=== PATIENT | male | born 1935 | race African-American/Black ===

== ENCOUNTER 2016-05-02 13:23 | Outpatient (CLI) | payer OTHER ==
[2016-01-19 21:12] VITALS: BP 147/58
--- NOTE | 2016-05-02 14:35 | Diagnostic Imaging Report ---
[facility] [address] [facility] [address] [place], [place]. [address] Report Submission Date: May 02, 2016 2:12:32 PM COSTUMING SUPERVISOR Patient Study Name: LUIS FAIR Date: May 02, 2016 1:35:04 PM COSTUMING SUPERVISOR Modality Type: CT\SR Gender: M Description: CT BRAIN W/O CONTRAST : 39 Institution: [facility] Physician KE HELIO - OP Computed tomography of the head without contrast HISTORY: Loss of consciousness and altered mental status FINDINGS: Transverse brain sections are obtained without contrast revealing mild cerebellar and marked cerebral atrophy. Extensive chronic small vessel ischemic gliosis is observed throughout cerebral white matter. Old lacunar infarcts are observed in each cerebellar hemisphere, right rylee, and bilateral basal ganglia. Gates-white differentiation is intact. There is no intracranial hemorrhage, mass effect, or fluid collection. The skull is intact. IMPRESSION: Mild cerebellar and marked cerebral atrophy. 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 Extensive chronic small vessel ischemic gliosis in cerebral white matter. No acute intracranial abnormalities observed. Electronically signed on May 02, 2016 2:12:32 PM COSTUMING SUPERVISOR by: Marco Antonio SILVA
== END 2016-05-02 13:24 ==
LOC: RAD 13:23
PROVIDERS: ATTEND Family Medicine
DX: R41.82 Altered mental status, unspecified (principal)
CPT/HCPCS: 70450

== ENCOUNTER 2016-08-16 17:51 | Emergency (ER) | payer OTHER ==
[2016-08-16] MEDS ORDERED: 0.9 % SODIUM CHLORIDE 1,000 ML IV ONE (17:58)
[2016-08-16 18:08] LABS: BASOPHILS % 0.3 (0.0-1.5); EOSINOPHILS % 1.5 % (0.0-6.8); MEAN CORPUSCULAR HEMOGLOBIN 29.1 pg (28.0-34.0); MEAN CORPUSCULAR VOLUME 93.2 fl (80.0-100.0); NEUTROPHILS # 8.7 # k/uL (1.4-7.7)
--- NOTE | 2016-08-16 18:15 | ED Physician Documentation ---
General Adult - HISTORIAN Historian: paramedics, other ([facility]) - HPI Stated Complaint: unresponsiveness Chief Complaint: General Adult Additional Information: Decreasing responsiveness since lunch. When EMS arrived, pt's - ROS CONST: fever (99.6 in ER) - PAST HX Past History: hypertension, other (CVA; BPH, IDDM) - SOCIAL HX Smoking History: non-smoker - FAMILY HX Family History: No (no signif ) - VITAL SIGNS Vital Signs: Vital Signs Temp Pulse Resp BP Pulse Ox 147/58 01/19/16 21:10 - REVIEWED ASSESSMENTS Nursing Assessment Reviewed: Yes Vitals Reviewed: Yes <ERICKSON CUADRA - Last Filed: 08/16/16 19:19> - VITAL SIGNS Vital Signs: Vital Signs Temp Pulse Resp BP Pulse Ox 98 F 80 14 160/56 98 08/16/16 17:51 08/16/16 17:51 08/16/16 17:51 08/16/16 17:51 08/16/16 17:51 <Soham Sauceda - Last Filed: 08/16/16 21:08> - PAST HX Allergies/Adverse Reactions: Allergies Allergy/AdvReac Type Severity Reaction Status Date / Time rivastigmine [From Exelon] Allergy Verified 11/20/14 14:24 rivastigmine tartrate Allergy Verified 11/20/14 14:24 [From Exelon] Home Medications: Ambulatory Orders Medication Instructions Recorded Allopurinol [Zyloprim] 300 mg PO DAILY 06/22/14 Aspirin [Eden] 81 mg PO DAILY 06/22/14 Lisinopril 5Mg [Prinivil] 10 mg PO DAILY 06/22/14 Lovastatin 20 mg PO HS 06/22/14 Potassium Chloride [Klor-Con M20] 20 meq PO DAILY 06/22/14 amLODIPine BESYLATE [Norvasc] 10 mg PO 0900 06/22/14 Amlodipine Besylate [Amlodipine 10 mg PO DAILY 11/20/14 Besylate] Donepezil HCl [Donepezil HCl] 10 mg PO DAILY 11/20/14 Finasteride [Finasteride] 5 mg PO DAILY 11/20/14 Furosemide [Furosemide] 20 mg PO DAILY 11/20/14 Gabapentin [Gabapentin] 400 mg PO TID 11/20/14 Insulin Aspart [Novolog] 2 units SUBCUT DAILY 11/20/14 Insulin Glargine,Hum.rec.anlog 40 units SUBCUT DAILY 11/20/14 [Lantus] Terazosin HCl [Hytrin] 2 mg PO DAILY 11/20/14 Mag Hydrox/Al Hydrox/Simeth 15 ml PO Q2H PRN #120 udc 01/19/16 [Mylanta] Omeprazole [Prilosec] 20 mg PO DAILY #30 capsule. 01/19/16 Progress - Progress Progress: CT Brain without Contrast History: HX CVA, DECREASED RESPONSIVENESS Technique: Transaxial CT was performed without contrast from the skull base to the vertex. Findings: Comparison is made to examinations dated May 02, 2016. Scattered bilateral white matter hypodensity is present, consistent with gliosis. Diffuse cerebral atrophy is present. The lateral ventricles are dilated but unchanged. There is evidence of old bilateral basal ganglia, pontine and right cerebellar lacunar infarcts. No hemorrhage or edema- producing mass. The fourth ventricle is midline. The paranasal sinuses are clear. No skull fracture. The mastoid air cells are well developed and well aerated. Impression: 1. Diffuse cerebral atrophy, white matter gliosis, and evidence old bilateral basal ganglia, pontine and right cerebellar infarcts. Findings on change since . 2. No acute cerebral pathology. Electronically signed on August 16, 2016 6:21:46 PM CDT by: Tico Ng 1900, care to Dr. Sauceda <ERICKSON CUADRA - Last Filed: 08/16/16 19:19> - Progress Progress: Sensorium improved after IVF. Levaquin 500 mg po in ER for hematuria. Rx Levaquin 250 mg. Take one daily for 7 days. <Soham Sauceda - Last Filed: 08/16/16 21:08> ED Results Lab/Radiology - Lab Results Lab Results: Lab Results 08/16/16 18:00 WBC 12.00 K/ul K/ul (4.00-12.00) RBC 3.43 M/ul L M/ul (3.90-5.20) Hgb 10.0 g/dL L g/dL (12.0-18.0) Hct 32.0 % L % (37.0-53.0) MCV 93.2 fl fl (80.0-100.0) MCH 29.1 pg pg (28.0-34.0) MCHC 31.2 g/dL g/dL (30.0-36.0) RDW 14.5 % H % (11.3-14.3) Plt Count 251 K/mm3 K/mm3 (130-400) Neut % (Auto) 72.6 % % (39.0-79.0) Lymph % (Auto) 18.7 % % (16.0-50.0) [place] % (Auto) 5.0 % % (0.0-11.0) Eos % (Auto) 1.5 % % (0.0-6.8) Baso % (Auto) 0.3 (0.0-1.5) Neut # 8.7 # k/uL H # k/uL (1.4-7.7) Lymph # 2.2 # k/uL # k/uL (0.6-4.0) [place] # 0.6 # k/uL # k/uL (0.0-0.9) Eos # 0.2 # k/uL # k/uL (0.0-0.6) Baso # 0.0 # k/uL # k/uL (0.0-0.5) Reactive Lymphs % 1.9 % % (0.0-5.0) Reactive Lymphs # 0.2 # k/uL # k/uL (0.0-0.8) - Orders Orders: ED Orders Category Date Time Status Place Saline Lock/IV Now Care 08/16/16 17:[address] BRAIN W/O CONTRAST Stat Exams 08/16/16 Ordered CBC/PLATELET/DIFF Routine Lab 08/16/16 18:00 Completed CMP Routine Lab 08/16/16 18:00 Received DRUG SCREEN URINE MEDICAL ONLY Routine Lab 08/16/16 Ordered PT-INR Routine Lab 08/16/16 18:00 Received TROPONIN I (cTnI) Stat Lab 08/16/16 18:00 Received URINALYSIS Routine Lab 08/16/16 Ordered 0.9 % Sodium Chloride [Normal Saline] 1,000 ml Med 08/16/16 17:58 Active IV Q2H <ERICKSON CUADRA - Last Filed: 08/16/16 19:19> - Lab Results Lab Results: Lab Results 08/16/16 08/16/16 08/16/16 18:35 18:35 18:00 WBC RBC Hgb Hct MCV MCH MCHC RDW Plt Count Neut % (Auto) Lymph % (Auto) [place] % (Auto) Eos % (Auto) Baso % (Auto) Neut # Lymph # [place] # Eos # Baso # Reactive Lymphs % Reactive Lymphs # PT INR Sodium Potassium Chloride Carbon Dioxide BUN Creatinine Estimated Creat Clear Est GFR ( Amer) Est GFR (Non-Af Amer) Glucose Calcium Total Bilirubin AST ALT Alkaline Phosphatase Troponin I < 0.03 ng/mL L ng/mL (0.03-0.06) Total Protein Albumin Urine Color Yellow (YELLOW) Urine Appearance Clear (CLEAR) Urine pH 5.5 (5.0 - 8.0) Ur Specific [place] 1.020 (1.010-1.030) Urine Protein 3+ mg/dL H mg/dL (NEGATIVE) Urine Ketones Negative mg/dL mg/dL (NEGATIVE) Urine Occult Blood 1+ H (NEGATIVE) Urine Nitrite Negative (NEGATIVE) Urine Bilirubin Negative (NEGATIVE) Urine Urobilinogen 0.2 Eu Eu (0.2-1.0) Ur Leukocyte Esterase Negative (NEGATIVE) Urine RBC 2-5 H (0-2 HPF) Urine WBC 0-2 (0-5 HPF) Amorphous Sediment Few H (NEGATIVE) Urine Bacteria Moderate H (NEGATIVE) Urine Glucose Negative mg/dL mg/dL (NEGATIVE) Opiates Screen Negative (2000 ng/mL) Oxycodone Screen Negative ng/mL ng/mL (<100) Methadone Screen Negative ng/mL ng/mL (<300) POC Urine Barbiturates Negative ng/mL ng/mL (<300) Amphetamines Screen Negative ng/mL ng/mL (<1000) POC Ur Methamphetamine Negative ng/mL ng/mL (<1000) MDMA Negative ng/mL ng/mL (<500) Benzodiazepines Screen Negative ng/mL ng/mL (<300) Cocaine Screen Negative ng/mL ng/mL (<150) Marijuana (THC) Screen Negative ng/mL ng/mL (<50) 08/16/16 08/16/16 08/16/16 18:00 18:00 18:00 WBC 12.00 K/ul K/ul (4.00-12.00) RBC 3.43 M/ul L M/ul (3.90-5.20) Hgb 10.0 g/dL L g/dL (12.0-18.0) Hct 32.0 % L % (37.0-53.0) MCV 93.2 fl fl (80.0-100.0) MCH 29.1 pg pg (28.0-34.0) MCHC 31.2 g/dL g/dL (30.0-36.0) RDW 14.5 % H % (11.3-14.3) Plt Count 251 K/mm3 K/mm3 (130-400) Neut % (Auto) 72.6 % % (39.0-79.0) Lymph % (Auto) 18.7 % % (16.0-50.0) [place] % (Auto) 5.0 % % (0.0-11.0) Eos % (Auto) 1.5 % % (0.0-6.8) Baso % (Auto) 0.3 (0.0-1.5) Neut # 8.7 # k/uL H # k/uL (1.4-7.7) Lymph # 2.2 # k/uL # k/uL (0.6-4.0) [place] # 0.6 # k/uL # k/uL (0.0-0.9) Eos # 0.2 # k/uL # k/uL (0.0-0.6) Baso # 0.0 # k/uL # k/uL (0.0-0.5) Reactive Lymphs % 1.9 % % (0.0-5.0) Reactive Lymphs # 0.2 # k/uL # k/uL (0.0-0.8) PT 10.4 Seconds Seconds (9.7-11.5) INR 1.0 (0.9-1.1) Sodium 135 mmol/L L mmol/L (136-145) Potassium 4.1 mmol/L mmol/L (3.5-5.0) Chloride 99 mmol/L mmol/L (98-110) Carbon Dioxide 28 mmol/L mmol/L (20-32) BUN 25 mg/dL mg/dL (10-26) Creatinine 1.5 mg/dL mg/dL (0.4-1.5) Estimated Creat Clear 38 Est GFR ( Amer) 58 L (60 - ) Est GFR (Non-Af Amer) 48 L (60 - ) Glucose 167 mg/dL H mg/dL (70-99) Calcium 9.4 mg/dL mg/dL (8.5-10.5) Total Bilirubin 0.4 mg/dL mg/dL (0.2-1.2) AST 24 U/L U/L (0-41) ALT 17 U/L U/L (0-45) Alkaline Phosphatase 58 U/L U/L (46-116) Troponin I Total Protein 7.1 g/dL g/dL (6.0-8.5) Albumin 3.7 g/dL g/dL (3.0-5.5) Urine Color Urine Appearance Urine pH Ur Specific [place] Urine Protein Urine Ketones Urine Occult Blood Urine Nitrite Urine Bilirubin Urine Urobilinogen Ur Leukocyte Esterase Urine RBC Urine WBC Amorphous Sediment Urine Bacteria Urine Glucose Opiates Screen Oxycodone Screen Methadone Screen POC Urine Barbiturates Amphetamines Screen POC Ur Methamphetamine MDMA Benzodiazepines Screen Cocaine Screen Marijuana (THC) Screen - Orders Orders: ED Orders Category Date Time Status In & Out Catheter [Urinary catheterization] 1T Care 08/16/16 18:[address] Saline Lock/IV Now Care 08/16/16 17:[address] BRAIN W/O CONTRAST Stat Exams 08/16/16 Taken CBC/PLATELET/DIFF Routine Lab 08/16/16 18:00 Completed CMP Routine Lab 08/16/16 18:00 Completed DRUG SCREEN URINE MEDICAL ONLY Routine Lab 08/16/16 18:35 Completed PT-INR Routine Lab 08/16/16 18:00 Completed TROPONIN I (cTnI) Stat Lab 08/16/16 18:00 Completed URINALYSIS Routine Lab 08/16/16 18:35 Completed 0.9 % Sodium Chloride [Normal Saline] 1,000 ml Med 08/16/16 17:58 Discontinued IV Q2H Levofloxacin [Levaquin] Med 08/17/16 09:00 Ordered 500 mg PO DAILY <Soham Sauceda Last Filed: 08/16/16 21:08> General Adult Physical Exam - PHYSICAL EXAM GENERAL APPEARANCE: no distress EENT: eye inspection normal (except pupils 2mm or less marisol) NECK: normal inspection, supple RESPIRATORY: no resp distress, breath sounds normal CVS: reg rate & rhythm, heart sounds normal ABDOMEN: soft, normal bowel sounds RECTAL: deferred BACK: normal inspection SKIN: warm/dry, normal color EXTREMITIES: no evidence of injury, no edema NEURO: CN's nml as tested, motor nml, sensation nml, other <ERICKSON CUADRA - Last Filed: 08/16/16 19:19> Discharge <ERICKSON CUADRA - Last Filed: 08/16/16 19:19> Decision to Admit: NO Decision Time: 20:30 <Soham Sauceda - Last Filed: 08/16/16 21:08> Clincal Impression: Hematuria Mental status change Qualifiers: Altered mental status type: unspecified Qualified Code(s): R41.82 - Altered mental status, unspecified Referrals: Max Blanco MD [Primary Care Provider] - Home Medications: Ambulatory Orders Allopurinol [Zyloprim] 300 mg PO DAILY 06/22/14 Aspirin [Eden] 81 mg PO DAILY 06/22/14 Lisinopril 5Mg [Prinivil] 10 mg PO DAILY 06/22/14 Lovastatin 20 mg PO HS 06/22/14 Potassium Chloride [Klor-Con M20] 20 meq PO DAILY 06/22/14 amLODIPine BESYLATE [Norvasc] 10 mg PO 0900 06/22/14 Amlodipine Besylate [Amlodipine Besylate] 10 mg PO DAILY 11/20/14 Donepezil HCl [Donepezil HCl] 10 mg PO DAILY 11/20/14 Finasteride [Finasteride] 5 mg PO DAILY 11/20/14 Furosemide [Furosemide] 20 mg PO DAILY 11/20/14 Gabapentin [Gabapentin] 400 mg PO TID 11/20/14 Insulin Aspart [Novolog] 2 units SUBCUT DAILY 11/20/14 Insulin Glargine,Hum.rec.anlog [Lantus] 40 units SUBCUT DAILY 11/20/14 Terazosin HCl [Hytrin] 2 mg PO DAILY 11/20/14 Mag Hydrox/Al Hydrox/Simeth [Mylanta] 15 ml PO Q2H PRN #120 udc 01/19/16 Omeprazole [Prilosec] 20 mg PO DAILY #30 capsule. 01/19/16 Condition: Stable Disposition: 04 [facility]
[2016-08-16 18:45] LABS: APPEARANCE,URINE Clear (CLEAR); COLOR,URINE Yellow (YELLOW); OCCULT BLOOD,URINE 1+ (NEGATIVE); PH URINE 5.5 (5.0 - 8.0); UROBILINOGEN URINE 0.2 Eu (0.2-1.0)
[2016-08-16 18:48] LABS: AMPHETAMINE NEGATIVE ng/mL (<1000); BARBITURATES NEGATIVE ng/mL (<300); CANNABINOIDS NEGATIVE ng/mL (<50); COCAINE NEGATIVE ng/mL (<150); METHAMPHETAMINE NEGATIVE ng/mL (<1000); METHYLENEDIOXYMETHAMPHETAMINE NEGATIVE ng/mL (<500)
[2016-08-16 19:01] LABS: AMORPHOUS SEDIMENT,UR FEW (NEGATIVE)
[2016-08-16] MEDS ORDERED: LEVOFLOXACIN 500 MG TABLET PO ONE (20:41)
[2016-08-16 21:28] VITALS: BP 170/61
--- NOTE | 2016-08-16 22:47 | Diagnostic Imaging Report ---
ERICKSON CUADRA [facility] [address] [facility] [address] [place], [place]. [address] Report Submission Date: August 16, 2016 6:21:46 PM CDT Patient Study Name: LUIS FAIR Date: August 16, 2016 6:07:52 PM CDT Modality Type: CT\SR Gender: M Description: CT BRAIN W/O CONTRAST : 37 Institution: [facility] Physician: ERICKSON CUADRA CT Brain without Contrast History: HX CVA, DECREASED RESPONSIVENESS Technique: Transaxial CT was performed without contrast from the skull base to the vertex. Findings: Comparison is made to examinations dated May 02, 2016. Scattered bilateral white matter hypodensity is present, consistent with gliosis. Diffuse cerebral atrophy is present. The lateral ventricles are dilated but unchanged. There is evidence of old bilateral basal ganglia, pontine and right cerebellar lacunar infarcts. No hemorrhage or edema- producing mass. The fourth ventricle is midline. The paranasal sinuses are clear. No skull fracture. The mastoid air cells are well developed and well aerated. Impression: 1. Diffuse cerebral atrophy, white matter gliosis, and evidence old bilateral basal ganglia, pontine and right cerebellar infarcts. Findings on change since . 2. No acute cerebral pathology. Electronically signed on August 16, 2016 6:21:46 PM CDT by: Tico Ng [facility]
[2016-08-17] MEDS ORDERED: LEVOFLOXACIN 500 MG TABLET PO SCH (09:00)
== END 2016-08-16 21:00 ==
LOC: ED 17:51
DX: R41.82 Altered mental status, unspecified (principal); R31.9 Hematuria, unspecified
CPT/HCPCS: 70450; 80053; 81002; 84484; 85025; 85610; G0481; J7030; 51701; 80377; 96360; 99283